=== PATIENT | male | born 2000 | race Caucasian/White ===

== ENCOUNTER 2022-11-21 11:29 | Emergency (ER) | payer OTHER ==
[2022-11-21] MEDS ORDERED: Diphtheria,Pertussis(Acell),Tetanus Vaccine 0.5 ML Syringe IM ONE (12:00)
[2022-11-21] MEDS ORDERED: Lidocaine 1% PF 2 ML SDV INJECT ONE (12:00)
== END 2022-11-21 13:43 | disposition home or self-care (01) ==
LOC: MW.ED 11:29
DX: S21.112A Laceration without foreign body of left front wall of thorax without penetration into thoracic cavity, initial encounter (principal); Z88.0 Allergy status to penicillin; Z23 Encounter for immunization; W22.09XA Striking against other stationary object, initial encounter; Y99.0 Civilian activity done for income or pay
CPT/HCPCS: 12001; 71045; 71045-26; 90471; 90715; 99283-25